=== PATIENT | female | born 1975 | race Caucasian/White ===

== ENCOUNTER 2021-12-27 13:00 | Outpatient (RCR) | payer MEDICARE, OTHER, MEDICAID, SELFPAY ==
[2021-12-14 13:12] VITALS: BP 106/65; PULSE 68; RESP 16; TEMP 36.6; O2SAT 96
[2021-12-14] MEDS: 0.9 % SODIUM CHLORIDE 1000 ml 1,000 ML IV (13:30)
[2021-12-14 14:39] LABS: Basophils Percent Auto 0.3 % (0.0-3.0); Eosinophils Percent Auto 3.1 % (0.0-7.0); Hematocrit 32.2 % (33.0-51.0); Hemoglobin* 10.5 gm/dL (12.0-16.0); Lymphocytes Percent Auto 30.7 % (20-44); Mean Corpuscular HGB Conc 33 gm/dL (32-36); Mean Corpuscular Hemoglobin 30 pg (26-34); Mean Corpuscular Volume 93 fL (80-100); Monocytes Percent Auto 10.2 % (0.0-11.0); Neutrophils Percent Auto 55.7 % (42.0-72.0); Platelet Count* 184 K/uL (140-440); RDW Coefficient of Variation % 12.1 % (11.5-15.5); Red Blood Count 3.46 m/uL (4.00-5.20); White Blood Count* 3.23 K/uL (4.50-11.00)
[2021-12-14 14:55] LABS: Slide Review Reflex No
[2021-12-14 15:01] LABS: Chloride* 108 mmol/L (96-114); Potassium* 4.3 mmol/L (3.6-5.1); Sodium* 135 mmol/L (135-149)
[2021-12-14 15:03] LABS: Creatinine* 1.2 mg/dL (0.5-1.5); Estimated Glomerular Filt Rate 56.19
[2021-12-14 15:04] LABS: Blood Urea Nitrogen* 18 mg/dL (5-24); Carbon Dioxide* 21 mmol/L (20-32); Glucose* 197 mg/dL (60-115)
[2021-12-17 11:50] LABS: CMV Quant PCR Interp Not Detected (Not Detected); Cytomegalovirus Quant Source Blood
[2021-12-17 13:16] VITALS: BP 114/67; PULSE 89; RESP 16; TEMP 36.9; O2SAT 95
--- NOTE | 2021-12-17 16:10 | ONC.NURNOTE ---
Patient here for IVF and notes that her provider wanted her hemaglobin and BMP rechecked today as well as a check on her tacrolimus level. Orders were available for her tacrolimus order, but no orders for today's CBC and BMP. Called office at patient arrival and they were to send orders after their meeting that they were at. Orders sent at 1600 and added to her labs that were drawn earlier in the day. Patient would like call with with results, and her urine results as well. Coffee Sommelier unable to find results from her urine, and called lab, who are also looking for results. Patient to be called once results are available.
[2021-12-17 16:40] LABS: Hematocrit 29.7 % (33.0-51.0); Mean Corpuscular HGB Conc 34 gm/dL (32-36); Mean Corpuscular Hemoglobin 31 pg (26-34); Mean Corpuscular Volume 91 fL (80-100); Platelet Count* 218 K/uL (140-440); Red Blood Count 3.27 m/uL (4.00-5.20); White Blood Count* 4.04 K/uL (4.50-11.00)
[2021-12-17 16:43] LABS: Chloride* 102 mmol/L (96-114); Potassium* 4.4 mmol/L (3.6-5.1); Sodium* 132 mmol/L (135-149)
[2021-12-17 16:45] LABS: Creatinine* 1.4 mg/dL (0.5-1.5); Estimated Glomerular Filt Rate 47 ml/min; Slide Review Reflex No
[2021-12-17 16:46] LABS: Blood Urea Nitrogen* 17 mg/dL (5-24); Calcium* 8.8 mg/dL (8.4-10.6); Carbon Dioxide* 21 mmol/L (20-32); Glucose* 111 mg/dL (60-115)
[2021-12-18 18:22] LABS: Tacrolimus by HPLC-MS/MS 5.8 ng/mL
[2021-12-27 12:59] VITALS: BP 100/68; PULSE 75; TEMP 36.7; O2SAT 16
[2021-12-27 14:01] LABS: Chloride* 106 mmol/L (96-114)
[2021-12-27 14:02] LABS: Potassium* 4.4 mmol/L (3.6-5.1); Sodium* 135 mmol/L (135-149)
[2021-12-27 14:04] LABS: Creatinine* 1.4 mg/dL (0.5-1.5); Estimated Glomerular Filt Rate 47 ml/min
[2021-12-27 14:05] LABS: Blood Urea Nitrogen* 13 mg/dL (5-24); Calcium* 9.2 mg/dL (8.4-10.6); Carbon Dioxide* 23 mmol/L (20-32); Glucose* 90 mg/dL (60-115)
[2021-12-27 14:07] LABS: Basophils Percent Auto 0.9 % (0.0-3.0); Eosinophils Percent Auto 0.9 % (0.0-7.0); Hematocrit 35.4 % (33.0-51.0); Hemoglobin* 11.6 gm/dL (12.0-16.0); Immature Granulocytes Abs Auto 0.02 K/uL (0.00-0.30); Lymphocytes Percent Auto 25.8 % (20-44); Mean Corpuscular HGB Conc 33 gm/dL (32-36); Mean Corpuscular Hemoglobin 30 pg (26-34); Mean Corpuscular Volume 93 fL (80-100); Monocytes Percent Auto 9.1 % (0.0-11.0); Neutrophils Percent Auto 62.7 % (42.0-72.0); Platelet Count* 295 K/uL (140-440); RDW Coefficient of Variation % 12.5 % (11.5-15.5); Red Blood Count 3.81 m/uL (4.00-5.20); White Blood Count* 3.41 K/uL (4.50-11.00)
[2021-12-27 14:13] LABS: Slide Review Reflex No
[2021-12-27] MEDS: 0.9 % SODIUM CHLORIDE 1000 ml 1,000 ML IV (15:51)
[2021-12-27] MEDS: SODIUM CHLORIDE 0.9 % (FLUSH) 10 ML SYRINGE IVF (15:51)
[2021-12-28 18:19] LABS: Tacrolimus by HPLC-MS/MS 7.7 ng/mL
== END 2022-01-02 23:59 | disposition home or self-care (01) ==
LOC: CCIC 13:00
PROVIDERS: PCP Family Medicine; Visit Provider Clinical Nurse Specialist
DX: E86.0 Dehydration (principal); Z94.0 Kidney transplant status
CPT/HCPCS: 36415; 36592; 80048; 80197; 85025; 85027; 87497; 96360; 99211; J7030

== ENCOUNTER 2022-01-03 14:16 | Emergency (ER) | payer MEDICARE, OTHER, MEDICAID, SELFPAY ==
[2022-01-03 14:29] VITALS: BP 102/55; PULSE 74; RESP 18; TEMP 36.4; O2SAT 96; BMI 26.3
[2022-01-03 15:00] VITALS: BP 91/69; PULSE 74; RESP 20; O2SAT 95
[2022-01-03 15:30] LABS: Appearance Urine Clear (Clear); Bilirubin Urine Negative (Negative); Blood Urine Negative (Negative); Color Urine Yellow (Yellow); Glucose Urine Negative (Negative); Ketones Urine Negative (Negative); Leukocyte Esterase Urine Trace (Negative); Nitrite Urine Negative (Negative); Protein Urine Negative (Negative); Specific Gravity Urine 1.015 (1.000-1.030); Urobilinogen Urine 0.2 (0.2-1.0)
[2022-01-03 15:34] LABS: Basophils Absolute Auto 0.02 K/uL (0.00-0.30); Basophils Percent Auto 0.4 % (0.0-3.0); Eosinophils Absolute Auto 0.13 K/uL (0.00-0.50); Eosinophils Percent Auto 2.6 % (0.0-7.0); Hematocrit 30.7 % (33.0-51.0); Hemoglobin* 10.3 gm/dL (12.0-16.0); Immature Granulocytes Abs Auto 0.01 K/uL (0.00-0.30); Lymphocytes Percent Auto 14.4 % (20-44); Mean Corpuscular HGB Conc 34 gm/dL (32-36); Mean Corpuscular Hemoglobin 31 pg (26-34); Mean Corpuscular Volume 92 fL (80-100); Monocytes Percent Auto 14.2 % (0.0-11.0); Neutrophils Absolute Auto 3.37 K/uL (1.7-7.0); Neutrophils Percent Auto 68.2 % (42.0-72.0); Platelet Count* 213 K/uL (140-440); RDW Coefficient of Variation % 12.5 % (11.5-15.5); Red Blood Count 3.34 m/uL (4.00-5.20); White Blood Count* 4.94 K/uL (4.50-11.00)
[2022-01-03 15:37] LABS: Slide Review Reflex No
[2022-01-03] MEDS: 0.9 % SODIUM CHLORIDE 1000 ml 1,000 ML IV (15:43)
[2022-01-03 15:45] VITALS: BP 99/49; PULSE 80; O2SAT 96
[2022-01-03 15:50] LABS: Albumin* 3.6 g/dL (3.3-5.0); Chloride* 108 mmol/L (96-114); Sodium* 137 mmol/L (135-149)
[2022-01-03 15:51] LABS: Potassium* 4.4 mmol/L (3.6-5.1)
[2022-01-03 15:53] LABS: Amphetamine Screen Urine Negative (Negative); Benzodiazepines Screen Urine POSITIVE (Negative); Cannabinoid Screen Urine Negative (Negative); Cocaine Screen Urine Negative (Negative); Methamphetamines Screen Urine Negative (Negative); Opiate Screen Urine Negative (Negative); Phencyclidine Screen Urine Negative (Negative)
[2022-01-03 15:53] LABS: Creatinine* 1.4 mg/dL (0.5-1.5); Estimated Glomerular Filt Rate 47 ml/min
[2022-01-03 15:54] LABS: Barbiturate Screen Urine Negative (Negative); Methadone Screen Urine Negative (Negative); Tricyclic Antidepressant Urine POSITIVE (Negative)
[2022-01-03 15:55] LABS: Buprenorphine Screen Urine Negative (Negative); Oxycodone Screen Urine POSITIVE (Negative)
[2022-01-03 15:56] LABS: Alanine Aminotransferase* 10 U/L (4-35); Alkaline Phosphatase* 92 U/L (40-150); Aspartate Amino Transferase* 20 U/L (12-35); Blood Urea Nitrogen* 16 mg/dL (5-24); C Reactive Protein* 2.3 mg/dL (0.5-1.0); Calcium* 8.5 mg/dL (8.4-10.6); Carbon Dioxide* 24 mmol/L (20-32); Glucose* 75 mg/dL (60-115); Total Protein* 6.3 g/dL (6.0-8.3)
[2022-01-03 15:56] LABS: HCG Qualitative* Negative (Negative)
[2022-01-03 16:00] VITALS: BP 98/56; PULSE 81; RESP 21; O2SAT 94
[2022-01-03 16:02] LABS: Acetaminophen* < 10.0 ug/mL (10.0-30.0); Bilirubin Total* < 0.1 mg/dL (0.1-1.5); Ethanol* < 0.01 % (0.01-0.03)
[2022-01-03 16:25] LABS: Salicylate* < 1.0 mg/dL (1.0-10)
[2022-01-03 16:30] VITALS: BP 96/62; PULSE 85; O2SAT 96
[2022-01-03 16:31] LABS: Erythrocyte SedimentationRate* 18 mm/hr (2-20)
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
[2022-01-03 17:00] VITALS: BP 96/67; PULSE 79; O2SAT 95
== END 2022-01-03 17:22 | disposition home or self-care (01) ==
PROVIDERS: Emergency Provider Family Medicine; PCP Family Medicine
DX: R41.0 Disorientation, unspecified (principal)
CPT/HCPCS: 36415; 80048; 80076; 80143; 80179; 80306; 81001; 82077; 82140; 83605; 84703; 85025; 85651; 86140; 87086; 96360; 96361; 99283; 99284; A9270; J7030

== ENCOUNTER 2022-01-04 13:46 | Emergency (ER) | payer MEDICARE, OTHER, MEDICAID, SELFPAY ==
[2022-01-04 14:04] VITALS: BP 135/80; PULSE 97; RESP 16; TEMP 36.1; O2SAT 95; BMI 27.1
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
--- NOTE | 2022-01-04 14:29 | CRLHL7_ITS ---
For Patients: As a result of the Century Cures Act, medical imaging exams and procedure reports are released immediately into your electronic medical record. You may view this report before your referring provider. If you have questions, please contact your health care provider. INDICATION: Memory issues. TECHNIQUE: CT head without contrast. Coronal and sagittal reformats were generated. COMPARISON: CT of the head from 04/22/2021 and 04/08/2021. FINDINGS: CSF spaces: Within normal limits for age. Brain parenchyma and extra-axial spaces: The ames-white differentiation is normal. No sign of mass, hemorrhage, or midline shift. No extra-axial fluid collection. Skull base and calvarium: The visualized paranasal sinuses and mastoid air cells demonstrate no acute or significant findings. The visualized orbits are grossly unremarkable. No skull fractures. IMPRESSION: No acute intracranial abnormality. Please note that all CT scans at this facility use dose modulation, iterative reconstruction, and/or weight-based dosing when appropriate to reduce radiation dose to as low as reasonably achievable. Dictated by Zacarias Clement MD @ 01/04/2022 4:28:15 PM (Electronically Signed)
[2022-01-04 15:30] LABS: Chloride* 107 mmol/L (96-114); Potassium* 4.1 mmol/L (3.6-5.1); Sodium* 138 mmol/L (135-149)
[2022-01-04 15:33] LABS: Blood Urea Nitrogen* 13 mg/dL (5-24); Carbon Dioxide* 24 mmol/L (20-32); Creatinine* 1.3 mg/dL (0.5-1.5); Estimated Glomerular Filt Rate 51 ml/min; Glucose* 74 mg/dL (60-115)
[2022-01-04 15:34] LABS: Calcium* 8.6 mg/dL (8.4-10.6)
--- NOTE | 2022-01-05 16:25 | ED.NURSE ---
Call from pt for clarification of lab results and d/c instructions.
== END 2022-01-04 16:13 | disposition home or self-care (01) ==
PROVIDERS: Emergency Provider Family Medicine; PCP Family Medicine
DX: R41.0 Disorientation, unspecified (principal)
CPT/HCPCS: 36415; 70450; 80048; 99284; 99285

== ENCOUNTER 2022-01-11 15:00 | Outpatient (RCR) | payer MEDICARE, OTHER, MEDICAID, SELFPAY | END 2023-01-02 23:00 | disposition home or self-care (01) | LOC: LAB 15:00 | PROVIDERS: PCP Family Medicine; Referring Provider Family Medicine | DX: Z94.0 Kidney transplant status (principal); B40.7 Disseminated blastomycosis ==

== ENCOUNTER 2022-07-01 10:30 | Outpatient (RCR) | payer MEDICARE, OTHER, MEDICAID, SELFPAY ==
[2022-01-03 13:32] VITALS: BP 103/67; PULSE 101; RESP 16; TEMP 36.7; O2SAT 93
[2022-01-03] MEDS: 0.9 % SODIUM CHLORIDE 1000 ml 1,000 ML IV (13:50)
--- NOTE | 2022-01-03 14:40 | ONC.NURNOTE ---
Pt arrived for IVF today. Pt's mother stated when pt registering she was falling asleep and does not seem herself. Pt did see Dr. Teixeira today at [facility] for a headache and abd pain and sent over to [facility]. Pt did eat at [employer] prior to arriving at [facility]. Pt's mother states she saw a change in her behavior right before arriving to the hospital. Pt also not making sense at times per pt's mother. Property Insurance Inspector called Dr. Teixeira's office with these concerns and recommended stopping the IVF and sending pt to the ER to be evaluated. IV stopped, report called to Shakila LEYVA and pt transported to ED at 1415.
[2022-01-11] MEDS: 0.9 % SODIUM CHLORIDE 1000 ml 1,000 ML IV (13:56)
[2022-01-11 13:58] LABS: Basophils Percent Auto 0.9 % (0.0-3.0); Chloride* 101 mmol/L (96-114); Eosinophils Percent Auto 3.4 % (0.0-7.0); Hematocrit 33.6 % (33.0-51.0); Hemoglobin* 11.1 gm/dL (12.0-16.0); Lymphocytes Percent Auto 21.1 % (20-44); Mean Corpuscular HGB Conc 33 gm/dL (32-36); Mean Corpuscular Hemoglobin 30 pg (26-34); Mean Corpuscular Volume 92 fL (80-100); Monocytes Percent Auto 10.5 % (0.0-11.0); Neutrophils Percent Auto 64.1 % (42.0-72.0); Platelet Count* 250 K/uL (140-440); Potassium* 4.6 mmol/L (3.6-5.1); RDW Coefficient of Variation % 12.4 % (11.5-15.5); Red Blood Count 3.65 m/uL (4.00-5.20); Sodium* 134 mmol/L (135-149); White Blood Count* 3.51 K/uL (4.50-11.00)
[2022-01-11 14:00] VITALS: BP 115/78; PULSE 71; RESP 16; TEMP 36.1; O2SAT 96
[2022-01-11 14:00] LABS: Creatinine* 1.3 mg/dL (0.5-1.5); Estimated Glomerular Filt Rate 51 ml/min
[2022-01-11 14:01] LABS: Blood Urea Nitrogen* 18 mg/dL (5-24); Calcium* 8.9 mg/dL (8.4-10.6); Carbon Dioxide* 26 mmol/L (20-32); Glucose* 95 mg/dL (60-115)
[2022-01-11 14:03] LABS: Slide Review Reflex No
[2022-01-12 19:55] LABS: Tacrolimus by HPLC-MS/MS 8.4 ng/mL
--- NOTE | 2022-01-13 10:59 | ONC.NURNOTE ---
Lab results faxed to Dr. Abbasi. Left message with pt.
--- NOTE | 2022-01-13 15:18 | PC.NURSE ---
Patients mother called stating that Dr. Fuentes' office didn't receive the blasto Ag urine results and asked us to fax it again. It has been faxed 4 times today. Called [facility] and they stated that they did receive the faxes but it takes time to get from one place to another. Updated patients mother with this information.
[2022-01-18] MEDS: 0.9 % SODIUM CHLORIDE 1000 ml 1,000 ML IV (09:20)
[2022-01-18 10:42] VITALS: BP 103/70; PULSE 85; RESP 16; TEMP 36.9; O2SAT 96
--- NOTE | 2022-01-19 16:36 | ONC.NURNOTE ---
Addendum entered and electronically signed by Karen Truong, GENARO 01/19/22 17:00: Per nursing notes, pt is having her blood work at [facility]. Original Note: New provider, new order for IVF. Ms Cj Gomez is transitioning her care from [facility], to [facility]. WE have received orders for weekly IV fluids from [facility], but Ms. Cj Gomez has her first consult appointment in the next month. I have signed the order for the IV fluids, which is consistent with her usual care here at the infusion center with previous outside provider. I have requested from Wilfrido Iglesias, RN, learning solutions specialist Coordinator, that they send consult note for our records for pt after she is seen there. Wilfrido confirms that they will send. Anticipating orders for lab work, i.e. tacrilimous levels etc from them.
[2022-01-24 10:35] VITALS: BP 103/70; PULSE 69; RESP 16; TEMP 36.6; O2SAT 96
[2022-01-24] MEDS: 0.9 % SODIUM CHLORIDE 1000 ml 1,000 ML IV (10:57)
[2022-01-31] MEDS: 0.9 % SODIUM CHLORIDE 1000 ml 1,000 ML IV (10:15)
[2022-01-31 10:36] VITALS: BP 93/68; PULSE 88; RESP 16; TEMP 36.9; O2SAT 98
[2022-02-08 14:14] VITALS: BP 94/54; PULSE 78; RESP 16; TEMP 36.8; O2SAT 96
[2022-02-08] MEDS: SODIUM CHLORIDE 0.9 % (FLUSH) 10 ML SYRINGE IVF (15:40)
[2022-02-14 07:56] VITALS: BP 122/76; PULSE 76; RESP 16; TEMP 36.2; O2SAT 96
[2022-02-14] MEDS: SODIUM CHLORIDE 0.9 % (FLUSH) 10 ML SYRINGE IVF (08:11)
[2022-02-14] MEDS: 0.9 % SODIUM CHLORIDE 1000 ml 1,000 ML IV (08:11)
[2022-02-21 10:00] VITALS: BP 104/71; PULSE 78; RESP 14; TEMP 36.1
[2022-02-21] MEDS: 0.9 % SODIUM CHLORIDE 1000 ml 1,000 ML IV (10:30)
[2022-02-21] MEDS: SODIUM CHLORIDE 0.9 % (FLUSH) 10 ML SYRINGE IVF (12:57)
[2022-03-02 10:25] VITALS: BP 111/70; PULSE 85; RESP 16; O2SAT 97
[2022-03-02] MEDS: 0.9 % SODIUM CHLORIDE 1000 ml 1,000 ML IV (10:36)
[2022-03-15 13:36] VITALS: BP 98/62; PULSE 71; RESP 16; TEMP 36.3; O2SAT 95
[2022-03-15] MEDS: 0.9 % SODIUM CHLORIDE 1000 ml 1,000 ML 1100 ML IV (14:17)
[2022-03-15] MEDS: SODIUM CHLORIDE 0.9 % (FLUSH) 10 ML SYRINGE IVF (14:21)
[2022-03-22 12:05] VITALS: BP 120/83; PULSE 78; RESP 16; TEMP 36.5; O2SAT 98
[2022-03-22] MEDS: 0.9 % SODIUM CHLORIDE 1000 ml 1,000 ML IV (12:17)
[2022-03-30 11:35] VITALS: BP 98/69; PULSE 87; RESP 16; TEMP 36.6; O2SAT 97
[2022-03-30] MEDS: 0.9 % SODIUM CHLORIDE 1000 ml 1,000 ML IV (11:44)
[2022-04-06 11:35] VITALS: BP 98/65; PULSE 84; RESP 16; TEMP 36.2; O2SAT 96
[2022-04-06] MEDS: 0.9 % SODIUM CHLORIDE 1000 ml 1,000 ML IV (12:00)
[2022-04-06] MEDS: SODIUM CHLORIDE 0.9 % (FLUSH) 10 ML SYRINGE IVF (15:54)
[2022-04-14 10:34] VITALS: BP 135/95; PULSE 65; RESP 16; TEMP 36.1; O2SAT 97
[2022-04-14] MEDS: 0.9 % SODIUM CHLORIDE 1000 ml 1,000 ML 800 ML IV (10:44)
[2022-04-14] MEDS: SODIUM CHLORIDE 0.9 % (FLUSH) 10 ML SYRINGE IVF (10:44)
[2022-04-21] MEDS: 0.9 % SODIUM CHLORIDE 1000 ml 1,000 ML 800 ML IV (11:00)
[2022-04-21 11:45] VITALS: BP 106/55; PULSE 69; RESP 16; TEMP 36.1; O2SAT 96
[2022-04-21] MEDS: SODIUM CHLORIDE 0.9 % (FLUSH) 10 ML SYRINGE IVF (14:22)
[2022-04-29] MEDS: 0.9 % SODIUM CHLORIDE 1000 ml 1,000 ML 800 ML IV (10:23)
[2022-04-29 10:40] VITALS: BP 107/74; PULSE 65; RESP 16; TEMP 36.3; O2SAT 96
[2022-05-06 13:00] VITALS: BP 98/65; PULSE 77; RESP 16; TEMP 36.3; O2SAT 96
[2022-05-06] MEDS: 0.9 % SODIUM CHLORIDE 1000 ml 1,000 ML IV (13:10)
[2022-05-06] MEDS: SODIUM CHLORIDE 0.9 % (FLUSH) 10 ML SYRINGE IVF (15:51)
[2022-05-12 10:59] VITALS: BP 89/51; PULSE 61; RESP 16; TEMP 36.1; O2SAT 96
[2022-05-12] MEDS: SODIUM CHLORIDE 0.9 % (FLUSH) 10 ML SYRINGE IVF (11:14)
[2022-05-12] MEDS: 0.9 % SODIUM CHLORIDE 1000 ml 1,000 ML IV (11:14)
[2022-06-03 10:15] VITALS: BP 110/72; PULSE 69; RESP 16; TEMP 36.4; O2SAT 94
[2022-06-03] MEDS: 0.9 % SODIUM CHLORIDE 1000 ml 1,000 ML IV (10:34)
[2022-06-10 09:39] VITALS: BP 107/72; PULSE 69; RESP 16; TEMP 35.9; O2SAT 97
[2022-06-10] MEDS: 0.9 % SODIUM CHLORIDE 1000 ml 1,000 ML 1100 ML IV (10:14)
[2022-06-17 10:12] VITALS: BP 119/83; PULSE 79; RESP 16; TEMP 36.4; O2SAT 98
[2022-06-17] MEDS: 0.9 % SODIUM CHLORIDE 1000 ml 1,000 ML IV (10:25)
[2022-06-17] MEDS: SODIUM CHLORIDE 0.9 % (FLUSH) 10 ML SYRINGE IVF (10:38)
[2022-06-24 09:56] VITALS: BP 107/77; PULSE 86; RESP 16; TEMP 36.2
[2022-06-24] MEDS: 0.9 % SODIUM CHLORIDE 1000 ml 1,000 ML IV (10:00)
[2022-06-24] MEDS: SODIUM CHLORIDE 0.9 % (FLUSH) 10 ML SYRINGE IVF (10:25)
[2022-07-01 10:36] VITALS: BP 109/67; PULSE 75; RESP 16; TEMP 36; O2SAT 96
== END 2022-07-02 23:59 | disposition home or self-care (01) ==
LOC: CCIC 10:30
PROVIDERS: PCP Family Medicine; Referring Provider Family Medicine; Visit Provider Clinical Nurse Specialist
DX: E86.0 Dehydration (principal); Z94.0 Kidney transplant status
CPT/HCPCS: 36415; 80048; 80197; 85025; 96360; J7030

== ENCOUNTER 2022-12-27 09:00 | Outpatient (RCR) | payer MEDICARE, OTHER, MEDICAID, SELFPAY ==
[2022-07-15 10:14] VITALS: BP 116/75; PULSE 68; RESP 16; TEMP 36.9; O2SAT 95
[2022-07-15] MEDS: 0.9 % SODIUM CHLORIDE 1000 ml 1,000 ML IV (10:45)
[2022-07-20] MEDS: 0.9 % SODIUM CHLORIDE 1000 ml 1,000 ML IV (08:57)
[2022-07-20 09:05] VITALS: BP 143/94; PULSE 70; RESP 16; TEMP 36.2; O2SAT 97
[2022-07-29 13:12] VITALS: BP 121/82; PULSE 81; RESP 16; TEMP 36.6; O2SAT 97
[2022-07-29] MEDS: 0.9 % SODIUM CHLORIDE 1000 ml 1,000 ML IV (13:31)
[2022-08-05 09:38] VITALS: BP 106/70; PULSE 85; RESP 14; TEMP 36.2; O2SAT 96
[2022-08-05] MEDS: 0.9 % SODIUM CHLORIDE 1000 ml 1,000 ML IV (10:00)
[2022-08-12] MEDS: 0.9 % SODIUM CHLORIDE 1000 ml 1,000 ML IV (10:00)
[2022-08-12 10:38] VITALS: BP 124/86; PULSE 82; RESP 16; TEMP 36.1; O2SAT 96
[2022-08-19] MEDS: 0.9 % SODIUM CHLORIDE 1000 ml 1,000 ML IV (12:45)
[2022-08-19 12:48] VITALS: BP 111/66; PULSE 76; RESP 16; TEMP 35.9; O2SAT 96
[2022-08-31 11:37] VITALS: BP 107/69; PULSE 72; RESP 16; TEMP 36.2; O2SAT 96
[2022-08-31] MEDS: 0.9 % SODIUM CHLORIDE 1000 ml 1,000 ML IV (11:55)
[2022-09-08 10:23] VITALS: BP 106/71; PULSE 76; RESP 16; TEMP 36.3
[2022-09-08] MEDS: 0.9 % SODIUM CHLORIDE 1000 ml 1,000 ML IV (10:30)
[2022-09-15] MEDS: 0.9 % SODIUM CHLORIDE 1000 ml 1,000 ML IV (10:00)
[2022-09-15 10:01] VITALS: BP 126/81; PULSE 88; RESP 16; TEMP 35.8; O2SAT 88
[2022-09-20 11:11] VITALS: BP 120/91; PULSE 76; RESP 16; TEMP 36.5; O2SAT 99
[2022-09-20] MEDS: 0.9 % SODIUM CHLORIDE 1000 ml 1,000 ML IV ×2 (11:33→12:32)
--- NOTE | 2022-09-20 12:14 | ONC.NURNOTE ---
Pt here today for IVF prior to going on vacation to [place]. Pt reached out to her Renal Transplant Team, Dr. Christoph Thorne; software writer spoke with AUTUMN Hernandez with Dr. Thorne's team. Order received additional 1 L NS x 1 today.
[2022-09-30 10:30] VITALS: BP 88/56; PULSE 66; RESP 12; TEMP 36.1; O2SAT 94
[2022-09-30] MEDS: 0.9 % SODIUM CHLORIDE 1000 ml 1,000 ML IV (10:50)
[2022-09-30 12:00] VITALS: BP 96/63; PULSE 70; RESP 16; TEMP 36.1; O2SAT 95
--- NOTE | 2022-09-30 13:26 | ONC.NURNOTE ---
very fatiqued and weak on arrival . given 1 L NS with some relief. pt contacted her MD. waiting for CT scan order. offered to take her to ed. declined
[2022-10-05 11:41] VITALS: BP 105/74; PULSE 74; RESP 16; TEMP 36.4; O2SAT 92
[2022-10-05] MEDS: 0.9 % SODIUM CHLORIDE 1000 ml 1,000 ML IV (11:54)
[2022-10-12 11:00] VITALS: BP 115/72; PULSE 62; RESP 16; TEMP 36.1; O2SAT 98
[2022-10-12] MEDS: 0.9 % SODIUM CHLORIDE 1000 ml 1,000 ML IV (11:00)
[2022-10-21 09:44] VITALS: BP 110/77; PULSE 78; RESP 16; TEMP 36.4; O2SAT 96
[2022-10-21] MEDS: 0.9 % SODIUM CHLORIDE 1000 ml 1,000 ML IV (10:00)
[2022-11-02] MEDS: 0.9 % SODIUM CHLORIDE 1000 ml 1,000 ML IV (10:30)
[2022-11-02 11:01] VITALS: BP 115/76; PULSE 91; RESP 16; TEMP 36.4; O2SAT 98
[2022-11-08 10:10] VITALS: BP 104/66; PULSE 70; RESP 16; TEMP 36.4; O2SAT 96
[2022-11-08] MEDS: 0.9 % SODIUM CHLORIDE 1000 ml 1,000 ML IV (10:22)
[2022-11-17] MEDS: 0.9 % SODIUM CHLORIDE 1000 ml 1,000 ML IV (14:08)
[2022-11-17 14:15] VITALS: BP 112/60; PULSE 90; RESP 16; TEMP 36.6; O2SAT 90
[2022-11-23 11:20] VITALS: BP 123/78; PULSE 75; RESP 16; TEMP 36.1; O2SAT 98
[2022-11-23] MEDS: 0.9 % SODIUM CHLORIDE 1000 ml 1,000 ML IV (11:30)
[2022-11-30 11:08] VITALS: BP 123/80; PULSE 74; RESP 16; TEMP 35.9; O2SAT 96
[2022-11-30] MEDS: 0.9 % SODIUM CHLORIDE 1000 ml 1,000 ML IV (11:24)
[2022-12-08 11:12] VITALS: BP 114/77; PULSE 67; RESP 16; TEMP 36.3; O2SAT 97
[2022-12-08] MEDS: 0.9 % SODIUM CHLORIDE 1000 ml 1,000 ML IV (11:40)
[2022-12-14 09:24] VITALS: BP 110/70; PULSE 74; RESP 16; TEMP 36; O2SAT 99
[2022-12-14] MEDS: 0.9 % SODIUM CHLORIDE 1000 ml 1,000 ML IV (09:41)
[2022-12-23] MEDS: 0.9 % SODIUM CHLORIDE 1000 ml 1,000 ML IV (10:00)
[2022-12-27 09:15] VITALS: BP 123/79; PULSE 86; RESP 16; TEMP 36.4; O2SAT 95
[2022-12-27] MEDS: 0.9 % SODIUM CHLORIDE 1000 ml 1,000 ML IV (09:30)
--- NOTE | 2022-12-27 11:23 | ONC.NURNOTE ---
states very fatigued today. Asked fernando to escort her out. Offered to take her to ER. Declined. vs wnl.
== END 2023-01-04 23:59 | disposition home or self-care (01) ==
LOC: CCIC 09:00
PROVIDERS: PCP Family Medicine; Referring Provider Family Medicine; Visit Provider Clinical Nurse Specialist
DX: E86.0 Dehydration (principal); Z94.0 Kidney transplant status
CPT/HCPCS: 96360; 96361; 96365; J7030

== ENCOUNTER 2023-07-07 13:15 | Outpatient (RCR) | payer OTHER, SELFPAY ==
--- NOTE | 2023-01-06 15:40 | PC.NURSE ---
Addendum entered by Gisela Lu RN 01/06/23 15:58: Called pt and LM asking her to bring PICC line documentation to her hydration appt at [facility] on 01/13/2023. Also, unsure where pt is hospitalized so unable to get records at this time. Will attempt to call pt next week to gather more info. Addendum entered by Gisela Lu RN 01/06/23 15:53: RN contacted Dr. Thorne's office and asked for his team to review pt's recent hospitalization and provide clearance to proceed with ordered hydration given significant medical issues recently. Asked for a call back or fax to ok proceeding with fluids next week. Pt is currently scheduled on 01/13/2023. Original Note: Pt's mother, Jie, called today to report that Kelsie is still in the hospital and being treated for bacterial infection/sepsis. Kelsie has a PICC line in place and will be getting home care for IV antibiotics. Jie states that Kelsie wishes to continue to get her hydration infusions at [facility] as she finds her visits here good for her mental health. Jie also states that pt's hydration ordering provider, Dr. Thorne, is aware of her hospitalization and supports ongoing hydration appointments. Of note, pt has also received care recently for having seizures. Will request records and request review by Karen Truong APRN as she has co-signed these fluid orders.
[2023-01-13 12:50] VITALS: BP 84/50; PULSE 73; RESP 16; TEMP 36.2; O2SAT 97
[2023-01-13] MEDS: 0.9 % SODIUM CHLORIDE 1000 ml 1,000 ML IV (13:00)
[2023-01-16 12:00] VITALS: BP 98/65; PULSE 59; RESP 18; TEMP 36.4; O2SAT 98
[2023-01-16] MEDS: 0.9 % SODIUM CHLORIDE 1000 ml 1,000 ML IV (12:10)
[2023-01-16 13:15] VITALS: BP 123/82
[2023-01-16 13:18] VITALS: BP 130/87
[2023-01-16 13:20] VITALS: BP 124/89
[2023-01-19] MEDS: 0.9 % SODIUM CHLORIDE 1000 ml 1,000 ML IV (09:45)
[2023-01-19 10:00] VITALS: BP 97/59; PULSE 75; RESP 16; TEMP 36.1; O2SAT 95
--- NOTE | 2023-01-19 11:47 | ONC.NURNOTE ---
no longer has her PICC line or tube feeding. Has a glucose monitor on her lt arm to alert her with low BS. was 55 while here. drank a aleive apple juice . 20 min later BS was 77. discharged to home with mother.
[2023-01-25 10:06] VITALS: BP 101/66; PULSE 79; RESP 16; TEMP 36.4; O2SAT 93
[2023-01-25] MEDS: 0.9 % SODIUM CHLORIDE 1000 ml 1,000 ML IV (10:38)
[2023-02-10 11:45] VITALS: BP 114/78; PULSE 73; RESP 16; TEMP 36.1; O2SAT 98
[2023-02-10] MEDS: 0.9 % SODIUM CHLORIDE 1000 ml 1,000 ML IV (12:00)
[2023-02-14 09:00] VITALS: BP 124/80; PULSE 80; RESP 16; TEMP 36.1; O2SAT 98
[2023-02-14] MEDS: 0.9 % SODIUM CHLORIDE 1000 ml 1,000 ML IV (09:30)
[2023-02-21 14:00] VITALS: BP 99/64; PULSE 87; RESP 16; O2SAT 95
[2023-02-21] MEDS: 0.9 % SODIUM CHLORIDE 1000 ml 1,000 ML IV (14:15)
--- NOTE | 2023-02-21 14:26 | PC.NURSE ---
Addendum entered by Gisela Lu RN 02/21/23 14:58: Received a call back from Dr. Teixeira's office recommending that pt go to the ER. RN went to deliver this recommendation to Kelsie and her mother and Kelsie was sitting up eating an apple and drinking a Clearly Cascade. Pt was more alert and seemed clearer. Pt states that her blood sugar monitor was gong off so she ate/drank some sugary foods. Pt did not check blood sugar prior to snacks but after it was 111. Pt also gave herself a pain medication bolus when RN was present. RN asked why she did that given her lethargy earlier and pt states that she needs to do 6 bolus' per day and that she was behind. Again, RN clearly stated Dr. Teixeira's recommendations to go to the ER to be evaluated. Pt's mother and pt verbalize understanding. They refuse to go to [facility] ER, pt's mother suggested [place] or [place]. They will discuss. Original Note: Pt presents to [facility] today for IVF. Pt's mother reports that Kelsie may have had a seizure this morning but it is unclear as pt is fairly lethargic. RN assessed the patient and Kelsie had a difficult time staying awake. Neuro exam done. Pt slow to respond, not all questions answered appropriately June when RN asked the month. Pt's speech garbled at times and clear at times. Kelsie is unreliable with her recollection of what prn meds she took today. Pt has Dilaudid, Oxycodone, and lorazepam prescribed. Kelsie's mother reports that she has a pain pump and recently had Dilaudid added to that mixture as well. IV started, fluids given per orders. RN asked permission to talk to pt's PCP given today's presentation. Called Dr. Teixeira and left a detailed message with the above.
--- NOTE | 2023-02-23 10:40 | ONC.NURNOTE ---
Patients mother called asking if patient could get Aranesp as her hemoglobin is 9.0. No current order on file for this medication. Instructed patients mother to reach out to her MD for a new order to start the process if that is necessary. Mother verbally understood.
[2023-02-28 11:30] VITALS: BP 94/56; PULSE 88; RESP 16; TEMP 36.1; O2SAT 94
[2023-02-28] MEDS: SODIUM CHLORIDE 0.9 % (FLUSH) 10 ML SYRINGE IVF (12:35)
[2023-02-28] MEDS: 0.9 % SODIUM CHLORIDE 1000 ml 1,000 ML IV (13:52)
[2023-03-09 10:00] VITALS: BP 120/83; PULSE 76; RESP 14; TEMP 36.1; O2SAT 97
[2023-03-09] MEDS: 0.9 % SODIUM CHLORIDE 1000 ml 1,000 ML IV (10:30)
[2023-03-09] MEDS: SODIUM CHLORIDE 0.9 % (FLUSH) 10 ML SYRINGE IVF (11:36)
--- NOTE | 2023-03-09 11:52 | ONC.NURNOTE ---
Wealysiay. encouraged her to express her feelings and crying is ok. surg. tomorrow. a bit confused. son with her and comforting. refused 2nd bag of IVF
[2023-03-22 09:43] VITALS: BP 117/80; PULSE 98; RESP 16; TEMP 36.5; O2SAT 97
[2023-03-22] MEDS: 0.9 % SODIUM CHLORIDE 1000 ml 1,000 ML IV (10:20)
[2023-03-22] MEDS: SODIUM CHLORIDE 0.9 % (FLUSH) 10 ML SYRINGE IVF (10:20)
--- NOTE | 2023-03-22 14:04 | ONC.NURNOTE ---
Pt here for IVF. VSS. Pt has concerns regarding significant wt loss, pain. Pt states she has an appt tomorrow morning with her gastric surgeon and neuro pain center. Pt also has appt with her primary care provider Dr. Teixeira on Monday03/24/23 along with IVF that day too.
[2023-03-24 12:30] VITALS: BP 117/73; PULSE 78; RESP 16; TEMP 36.1; O2SAT 95
[2023-03-24] MEDS: 0.9 % SODIUM CHLORIDE 1000 ml 1,000 ML IV (12:30)
[2023-03-24] MEDS: SODIUM CHLORIDE 0.9 % (FLUSH) 10 ML SYRINGE IVF (15:50)
[2023-04-07 10:30] VITALS: BP 97/66; PULSE 79; RESP 14; TEMP 36.1; O2SAT 98
[2023-04-07] MEDS: 0.9 % SODIUM CHLORIDE 1000 ml 1,000 ML IV (11:00)
[2023-04-07 12:15] VITALS: BP 112/73
[2023-04-07] MEDS: SODIUM CHLORIDE 0.9 % (FLUSH) 10 ML SYRINGE IVF (16:38)
[2023-05-11 13:19] VITALS: BP 118/72; PULSE 83; RESP 16; TEMP 36.6; O2SAT 97
[2023-05-11] MEDS: 0.9 % SODIUM CHLORIDE 1000 ml 1,000 ML IV (13:44)
[2023-05-25 10:05] VITALS: BP 115/70; PULSE 68; RESP 16; TEMP 36.5; O2SAT 96
[2023-05-25] MEDS: 0.9 % SODIUM CHLORIDE 1000 ml 1,000 ML IV (10:15)
[2023-05-25] MEDS: SODIUM CHLORIDE 0.9 % (FLUSH) 10 ML SYRINGE IVF (10:15)
[2023-06-09 09:41] VITALS: BP 114/75; PULSE 67; RESP 16; TEMP 36.4; O2SAT 99
[2023-06-21 11:26] VITALS: BP 106/62; PULSE 82; RESP 16; TEMP 36.3; O2SAT 97
[2023-06-21] MEDS: 0.9 % SODIUM CHLORIDE 1000 ml 1,000 ML IV ×2 (11:30→12:35)
[2023-06-21] MEDS: SODIUM CHLORIDE 0.9 % (FLUSH) 10 ML SYRINGE IVF (12:54)
[2023-07-07 13:08] VITALS: BP 109/71; PULSE 82; RESP 16; TEMP 36.7; O2SAT 97
[2023-07-07] MEDS: 0.9 % SODIUM CHLORIDE 1000 ml 1,000 ML IV ×2 (13:20→14:23)
[2023-07-07] MEDS: SODIUM CHLORIDE 0.9 % (FLUSH) 10 ML SYRINGE IVF (15:05)
== END 2023-07-12 23:59 | disposition home or self-care (01) ==
LOC: CCIC 13:15
PROVIDERS: PCP Family Medicine; Referring Provider Family Medicine; Visit Provider Clinical Nurse Specialist
DX: E86.0 Dehydration (principal); Z94.0 Kidney transplant status
CPT/HCPCS: 96360; 96361; 96366; J7030

== ENCOUNTER 2024-01-11 13:00 | Outpatient (RCR) | payer OTHER, SELFPAY ==
[2023-07-21 09:47] VITALS: BP 108/64; PULSE 72; RESP 16; TEMP 36.6; O2SAT 96
[2023-07-26 08:46] VITALS: BP 119/78; PULSE 84; RESP 17; TEMP 36.4; O2SAT 96
[2023-07-26] MEDS: 0.9 % SODIUM CHLORIDE 1000 ml 1,000 ML IV ×2 (10:05→11:05)
[2023-08-04 10:09] VITALS: BP 92/60; PULSE 75; RESP 16; TEMP 36.5; O2SAT 98
[2023-08-04] MEDS: 0.9 % SODIUM CHLORIDE 1000 ml 1,000 ML IV ×2 (10:20→11:22)
[2023-08-04] MEDS: SODIUM CHLORIDE 0.9 % (FLUSH) 10 ML SYRINGE IVF (10:30)
[2023-08-18 09:42] VITALS: BP 103/63; PULSE 73; RESP 16; TEMP 36.4; O2SAT 99
[2023-08-18] MEDS: SODIUM CHLORIDE 0.9 % (FLUSH) 10 ML SYRINGE IVF (09:52)
[2023-08-18] MEDS: 0.9 % SODIUM CHLORIDE 1000 ml 1,000 ML IV ×2 (09:52→11:01)
--- NOTE | 2023-08-18 11:59 | ONC.NURNOTE ---
Patient requested to be disconnected with approximately 75cc left in bag stating she can't take anymore she's feeling bloated. Nurse disconnected per patient request
[2023-08-31 13:03] VITALS: BP 94/68; PULSE 79; RESP 16; TEMP 36.1; O2SAT 97
[2023-08-31] MEDS: SODIUM CHLORIDE 0.9 % (FLUSH) 10 ML SYRINGE IVF (13:08)
[2023-08-31] MEDS: 0.9 % SODIUM CHLORIDE 1000 ml 1,000 ML IV ×2 (13:08→14:11)
[2023-08-31 14:53] VITALS: BP 105/65; PULSE 78; RESP 16; TEMP 36.5; O2SAT 98
[2023-09-18 13:17] VITALS: BP 114/71; PULSE 79; RESP 16; TEMP 36.7; O2SAT 97
[2023-09-18] MEDS: 0.9 % SODIUM CHLORIDE 1000 ml 1,000 ML IV (13:39)
[2023-09-18] MEDS: SODIUM CHLORIDE 0.9 % (FLUSH) 10 ML SYRINGE IVF (13:40)
--- NOTE | 2023-09-28 09:11 | ONC.NURNOTE ---
Pt's mother called to cancel appt for IVF fluids today due to pain. Requested to reschedule for 10/10/23.
[2023-10-10 14:00] VITALS: BP 120/80; PULSE 76; RESP 16; TEMP 36.7; O2SAT 98
[2023-10-10] MEDS: 0.9 % SODIUM CHLORIDE 1000 ml 1,000 ML IV ×2 (14:29→15:35)
[2023-10-25 13:41] VITALS: BP 98/66; PULSE 96; RESP 16; TEMP 37; O2SAT 95
[2023-10-25] MEDS: 0.9 % SODIUM CHLORIDE 1000 ml 1,000 ML IV (13:53)
[2023-12-05 09:40] VITALS: BP 117/79; PULSE 73; RESP 16; TEMP 36.4; O2SAT 100
[2023-12-05] MEDS: 0.9 % SODIUM CHLORIDE 1000 ml 1,000 ML IV (10:00)
[2023-12-05] MEDS: SODIUM CHLORIDE 0.9 % (FLUSH) 10 ML SYRINGE IVF (12:25)
== END 2024-01-17 23:59 | disposition home or self-care (01) ==
LOC: CCIC 13:00
PROVIDERS: PCP Family Medicine; Referring Provider Family Medicine; Visit Provider Clinical Nurse Specialist
DX: E86.0 Dehydration (principal); Z94.0 Kidney transplant status
CPT/HCPCS: 96360; 96361; J7030

== ENCOUNTER 2024-06-12 13:00 | Outpatient (RCR) | payer OTHER, MEDICARE, SELFPAY ==
[2024-02-29 16:08] LABS: Basophils Percent Auto 0.9 % (0.0-3.0); Hematocrit 26.8 % (33.0-51.0); Hemoglobin* 8.6 gm/dL (12.0-16.0); Lymphocytes Percent Auto 24.9 % (20-44); Mean Corpuscular HGB Conc 32 gm/dL (32-36); Mean Corpuscular Hemoglobin 32 pg (26-34); Mean Corpuscular Volume 99 fL (80-100); Monocytes Percent Auto 10.6 % (0.0-11.0); Neutrophils Percent Auto 57.6 % (42.0-72.0); Platelet Count* 289 K/uL (140-440); RDW Coefficient of Variation % 13.8 % (11.5-15.5); Red Blood Count 2.71 m/uL (4.00-5.20); White Blood Count* 3.49 K/uL (4.50-11.00)
[2024-02-29 16:16] LABS: Slide Review Reflex No
[2024-02-29 16:25] LABS: Albumin* 3.5 g/dL (3.3-5.0)
[2024-02-29 16:26] LABS: Chloride* 99 mmol/L (96-114); Potassium* 4.5 mmol/L (3.6-5.1); Sodium* 129 mmol/L (135-149)
[2024-02-29 16:28] LABS: Alanine Aminotransferase* 28 U/L (4-35); Alkaline Phosphatase* 122 U/L (40-150); Aspartate Amino Transferase* 30 U/L (12-35); Total Protein* 5.9 g/dL (6.0-8.3)
[2024-02-29 16:29] LABS: Anion Gap 6 mEq/L (7-15); Blood Urea Nitrogen* 13 mg/dL (5-24); Carbon Dioxide* 24 mmol/L (20-32); Cholesterol* 154 mg/dL (90-199); Creatine Kinase* 149 U/L (41-117); Creatinine* 0.9 mg/dL (0.5-1.5); Estimated Glomerular Filt Rate 78 ml/min; Glucose* 89 mg/dL (60-115)
[2024-02-29 16:30] LABS: Calcium* 8.5 mg/dL (8.4-10.6); HDL Cholesterol* 60 mg/dL (>=50); LDL Cholesterol Calculated 74 mg/dL (<100); Triglycerides* 101 mg/dL (40-149)
[2024-02-29 16:36] LABS: Bilirubin Total* < 0.1 mg/dL (0.1-1.5)
--- NOTE | 2024-03-05 14:34 | ONC.NURNOTE ---
PICC line removed without difficulty. Length of catheter same as insertion documentation. Pt observed for 30 min.
--- NOTE | 2024-04-04 13:15 | ONC.NURNOTE ---
Patient came into [facility] for IVF today. Looking through orders, they are and last note mentions a fluid restriction. Patient does note that she has been told that she needs to restrict her fluids, but also needs sodium, and was told not to bolus her feeding tube. She is getting different answers from different providers. Patient is seeing her PCP tomorrow and she was encouraged to talk with her about the best plan for her. She was recently hospitalized for cellulitis of a previous PIV per patient. This infection, along with mixed messages of fluid restriction needs to be addressed. She was told that if PCP feels hydration would be appropriate, they can send [facility] an updated order. Patient was comfortable with this plan.
[2024-04-09 13:44] VITALS: BP 115/77; PULSE 69; RESP 16; TEMP 35.9; O2SAT 97
[2024-04-09] MEDS: 0.9 % SODIUM CHLORIDE 500 ML 500 ML 1000 ML IV ×2 (14:30→14:55)
[2024-06-07 10:07] VITALS: BP 110/71; PULSE 67; RESP 16; TEMP 36.1; O2SAT 97
[2024-06-07] MEDS: SODIUM CHLORIDE 0.9 % (FLUSH) 10 ML SYRINGE IVF (10:37)
[2024-06-07] MEDS: 0.9 % SODIUM CHLORIDE 500 ML 1000 ML IV (10:37)
[2024-06-12 13:12] VITALS: BP 127/82; PULSE 82; RESP 16; TEMP 36.8; O2SAT 97
[2024-06-12] MEDS: 0.9 % SODIUM CHLORIDE 500 ML 500 ML 1000 ML IV ×2 (13:18→13:49)
[2024-06-12] MEDS: SODIUM CHLORIDE 0.9 % (FLUSH) 10 ML SYRINGE IVF (13:35)
--- NOTE | 2024-06-26 08:53 | ONC.NURNOTE ---
LATE ENTRY: 06/07/2024 - Pt present at [facility] for IVF. One litre ordered. RN provided 500 cc NS x 2. Paper orders had been sent from outside provider. Co-signed by Karen Truong APRN, [employer]IV[employer] DEPUT[employer] SHERIFF. RN entered orders electronically. Infusion started at 1037 and ended at 1140 on 06/07/2024.
== END 2024-08-27 23:59 | disposition home or self-care (01) ==
LOC: CCIC 13:00
PROVIDERS: Internal Medicine Infectious Disease; PCP Family Medicine; Referring Provider Family Medicine; Visit Provider Clinical Nurse Specialist
DX: E86.0 Dehydration (principal); Z94.0 Kidney transplant status
CPT/HCPCS: 36415; 36592; 80048; 80061; 80076; 82550; 85025; 96360; 99211; A4221; J7030